=== PATIENT | male | born 1955 | race Caucasian/White ===

== ENCOUNTER 2016-09-07 10:10 | Day surgery (SDC) | payer BC, OTHER ==
[~2016-09-07 10:10] MED LIST: Bupivacaine 0.25%/EPINEPHrine 1:200,000 10 ML SDV ONE; Lactated Ringers 1,000 ML IV SCH; ceFAZolin 2 GM in Premix Bag 1 BAG IV ONE
[2016-09-07] MEDS ORDERED: Octyl 2-Cyanoacrylate 1 Tube ONE (10:14)
--- NOTE | 2016-09-07 11:11 | PCM.PREANE ---
Preanesthetic Assessment - Anesthesia/Transfusion/Family Hx Anesthesia History: Prior Anesthesia Without Reaction Other Type of Anesthesia Reaction Comment: Denies any problem in past, 'my mother gets extreme nausea" Family History of Anesthesia Reaction: No Transfusion History: No Prior Transfusion(s) Intubation History: Unknown - Review of Systems General: No Symptoms Pulmonary: No Symptoms Cardiovascular: No Symptoms Gastrointestinal: No Symptoms Neurological: No Symptoms Other: Reports: None - Physical Assessment Height: 1.8 m Weight: 104.326 kg ASA Class: 2 Mental Status: Alert & Oriented x3 Airway Class: Mallampati = 3 Dentition: Reports: Normal Dentition, Broken Tooth/Teeth (crown fell of upper incisor during prostatectomy in 03/31) Thyro-Mental Finger Breadths: 3 Mouth Opening Finger Breadths: 3 ROM/Head Extension: Full Lungs: Clear to Auscultation, Normal Respiratory Effort Cardiovascular: Regular Rate, Regular Rhythm - Allergies Allergies/Adverse Reactions: Allergies Allergy/AdvReac Type Severity Reaction Status Date / Time Bee stings Allergy Swelling Uncoded 09/07/16 09:49 - Blood Blood Available: No - Anesthesia Plan Pre-Op Medication Ordered: None - Acknowledgements Anesthesia Type Planned: General Anesthesia Pt an Appropriate Candidate for the Planned Anesthesia: Yes Alternatives and Risks of Anesthesia Discussed w Pt/Guardian: Yes Pt/Guardian Understands and Agrees with Anesthesia Plan: Yes PreAnesthesia Questionnaire Other HEENT History: wears glasses Cardiovascular History: Reports: Hypertension Genitourinary History: Reports: Other (See Below) Other Genitourinary History: prostatectomy for prostate cancer Musculoskeletal History: Reports: Fracture Other Musculoskeletal History: DJD, hx: fracturing Lt clavicle, Right arm Neurological History: Reports: Other (See Below) Other Neuro History: hx lyme disease and bells palsey Endocrine/Metabolic History: Reports: Obesity/BMI 30+ Oncologic (Cancer) History: Reports: Prostate Dermatologic History: Reports: None - Past Surgical History Head Surgeries/Procedures: Reports: None GI Surgical History: Reports: Cholecystectomy Male Surgical History: Reports: Prostatectomy Musculoskeletal Surgical History: Reports: Shoulder Surgery Other Musculoskeletal Surgeries/Procedures:: Left Partial Shoulder replacement, 2 Left knee scopes, 1 Right knee arthroscopy Dermatological Surgical History: Reports: Other (See Below) - SUBSTANCE USE Smoking Status *Q: Current Every Day Smoker Tobacco Use Within Last Twelve Months: Cigarettes Other Tobacco Use Within Last Twelve Months: 40 yr history had been using 3 pack /day, down to 1 pack per day Recreational Drug Use History: No - HOME MEDS Home Medications: Home Meds Lisinopril 40 tab PO DAILY 12/17/14 [History] Docusate Sodium 100 mg PO ASDIRECTED PRN 09/04/16 [History] Hydrochlorothiazide 25 mg PO DAILY 09/04/16 [History] diphenhydrAMINE [Benadryl] 4 tab PO ASDIRECTED PRN 09/04/16 [History] - CURRENT (IN HOUSE) MEDS Current Meds: Current Medications Lactated Ringer's (Ringers, Lactated) 1,000 mls @ 125 mls/hr IV ASDIRECTED HAROLDO Last Admin: 09/07/16 10:36 Dose: 125 mls/hr Discontinued Medications Bupivacaine HCl/Epinephrine Bitart (Marcaine 0.25%/Epinephrine 1:200,000) Confirm Administered Dose 40 ml .ROUTE .STK-MED ONE Stop: 09/07/16 10:11 Cefazolin Sodium/Dextrose 2 gm (/ Premix) 50 mls @ 100 mls/hr IV ONETIME ONE Stop: 09/07/16 05:29 Octyl Cyanoacrylate (Dermabond Advance) Confirm Administered Dose 1 applic .ROUTE .STK-MED ONE Stop: 09/07/16 10:15
[2016-09-07] MEDS ORDERED: Midazolam 1 MG/ML 2 ML SDV ONE (11:31)
[2016-09-07] MEDS ORDERED: Propofol 200 MG/20 ML SDV ONE ×2 (11:31→13:02)
[2016-09-07] MEDS ORDERED: fentaNYL 250 MCG/5 ML SDV ONE (11:32)
[2016-09-07] MEDS ORDERED: ceFAZolin 1 GM Vial ONE (11:58)
[2016-09-07] MEDS ORDERED: Dexamethasone 4 MG/ML 5 ML MDV ONE (12:09)
[2016-09-07] MEDS ORDERED: Lidocaine 2% 5 ML SDV ONE (12:09)
[2016-09-07] MEDS ORDERED: Neostigmine Methylsulfate 1 MG/ML 5 ML Syringe ONE (12:09)
[2016-09-07] MEDS ORDERED: Ondansetron 4 MG/2 ML SDV ONE (12:09)
--- NOTE | 2016-09-07 13:22 | PCM.OPNOTE ---
- General Post-Op/Procedure Note Date of Surgery/Procedure: 09/07/16 Operative Procedure(s): incarcerated incisional hernia repair primary, no mesh used; hernia X 2 Findings: supraumb hernia w fat incarcerated, 2 cm, repaired primary; epigastrium hernia, 8 mm defect, repaired primary.[id number] Pre Op Diagnosis: incarc incisional hernia X 2 Post-Op Diagnosis: Same Anesthesia Technique: General ET Tube Primary Surgeon: Morgan Cortes Pathology: sent Complications: None Condition: Good
[2016-09-07] MEDS ORDERED: Acetaminophen/oxyCODONE 325-10 MG Tab PO ONE (13:35)
[2016-09-07] MEDS ORDERED: fentaNYL 100 MCG/2 ML SDV ONE (13:45)
[2016-09-07] MEDS: fentaNYL 100 MCG/2 ML SDV IVPUSH PRN ×4 (13:47→14:10)
[2016-09-07 15:13] VITALS: BP 134/72
--- NOTE | 2016-09-07 19:35 | OR ---
SURGEON: Morgan Cortes MD DATE OF PROCEDURE: 09/07/2016 PREOPERATIVE DIAGNOSIS: Incarcerated incisional hernia x2. POSTOPERATIVE DIAGNOSIS: Incarcerated incisional hernia x2. PROCEDURE PERFORMED: Repair of above, primary without using mesh. COMPLICATIONS: None. FINDINGS: On the supraumbilical area, there is a 2 cm hernia with omentum inside and epigastrium. There is an 8 mm hernia and fat trapped inside for repair primary. DESCRIPTION OF PROCEDURE: The patient was taken to the operating room, placed in a supine position. Upon induction of general endotracheal anesthesia, the patient's abdomen was prepped and draped in a sterile fashion. Time-out had been called, patient identified, procedure identified. Antibiotic was given. Procedure was then started. An Ioban was used prophylactically after assessment of appropriate landmark. Previous surgical incision above the umbilicus was used and we carefully dissected down to expose the hernia sac, and the hernia sac was then removed, sent for pathology. The sac was carefully delineated and the fascial defect is 2 cm and this was brought together without any tension and also expand the incision and laterally on both sides and give a relaxation incision. Hernia defect was repaired by the use of 0 Ethibond simple interrupted and the skin approximated by use of 4-0 Monocryl and Dermabond. Attention now turned to the epigastrium and a transverse incision was made and carefully dissected down to expose the hernia sac, which is horizontal in orientation. Opened the sac, there was fat inside, pushed back into the abdominal cavity, and the fascia defect is 8 mm was repaired with 2 stitches of 0 Ethibond followed with Monocryl followed with approximation of the skin and Dermabond. The patient was then awakened, extubated, and transferred to recovery in hemodynamically stable condition. The patient tolerated the procedure well and there were no intraoperative complications. Dr. Cortes was present throughout the whole procedure. As always, thank you for the kind referral. LOVE / MCKENNA /[id number]
== END 2016-09-07 15:30 | disposition home or self-care (01) ==
LOC: MW.SDS 10:10
PROVIDERS: ATTEND Surgery
PROC: 0WQF0ZZ Repair Abdominal Wall, Open Approach (ICD-10-PCS; principal; 2016-09-07)
PROC: 0WQF0ZZ Repair Abdominal Wall, Open Approach (ICD-10-PCS; 2016-09-07)
DX: K42.0 Umbilical hernia with obstruction, without gangrene (principal); K43.9 Ventral hernia without obstruction or gangrene; I10 Essential (primary) hypertension; M19.90 Unspecified osteoarthritis, unspecified site; F17.210 Nicotine dependence, cigarettes, uncomplicated; E66.9 Obesity, unspecified; Z68.32 Body mass index [BMI] 32.0-32.9, adult; Z91.030 Bee allergy status; Z90.49 Acquired absence of other specified parts of digestive tract; Z90.79 Acquired absence of other genital organ(s); Z96.612 Presence of left artificial shoulder joint; Z98.890 Other specified postprocedural states; Z79.899 Other long term (current) drug therapy; Z85.46 Personal history of malignant neoplasm of prostate; Z86.19 Personal history of other infectious and parasitic diseases
CPT/HCPCS: 49587; A9270; J0690; J1100; J2250; J2405; J3010; J7120; 00832; 88302; J2704

== ENCOUNTER 2017-02-08 07:36 | Day surgery (SDC) | payer OTHER ==
[~2017-02-08 07:36] MED LIST changes: -Bupivacaine 0.25%/EPINEPHrine 1:200,000 10 ML SDV ONE; +Sodium Chloride 0.9% 10 ML Syringe FLUSH PRN; +Sodium Chloride 0.9% 2.5 ML Syringe FLUSH PRN
[2017-02-08] MEDS ORDERED: Bupivacaine 0.5% 30 ML SDV ONE (07:43)
[2017-02-08] MEDS ORDERED: Lidocaine 1% 20 ML MDV ONE (07:46)
[2017-02-08] MEDS ORDERED: Albuterol/Ipratropium 3.0-0.5 MG/3 ML Neb Soln NEB ONE (08:03)
[2017-02-08] MEDS ORDERED: Propofol 200 MG/20 ML SDV ONE (08:04)
[2017-02-08] MEDS ORDERED: Lidocaine 2% 5 ML SDV ONE (08:04)
[2017-02-08] MEDS ORDERED: Midazolam 1 MG/ML 2 ML SDV ONE (08:04)
[2017-02-08] MEDS ORDERED: fentaNYL 100 MCG/2 ML SDV ONE (08:04)
--- NOTE | 2017-02-08 08:26 | PCM.PREANE ---
Preanesthetic Assessment - Procedure Proposed Procedure: Upper back mass excision (lipoma) - Anesthesia/Transfusion/Family Hx Anesthesia History: Prior Anesthesia Without Reaction Other Type of Anesthesia Reaction Comment: Denies any problem in past, 'my mother gets extreme nausea" Family History of Anesthesia Reaction: No Transfusion History: Prior Transfusion Without Reaction Intubation History: Unknown - Review of Systems General: Other (s/p radiation post prostatectomy) Pulmonary: Wheezing, Other (smoker) Cardiovascular: Other (HTN) Gastrointestinal: Other (s/p abdominal ventral hernia repair) Neurological: Other (arthritis; rough physical activity with work x lifetime) - Physical Assessment NPO Status Date: 02/07/17 NPO Status Time: 22:00 O2 Sat by Pulse Oximetry: 95 Respiratory Rate: 18 Vital Signs: Last Vital Signs Temp 98.8 F 02/08/17 08:11 Pulse 72 02/08/17 08:11 Resp 18 02/08/17 08:11 BP 138/73 02/08/17 08:11 Pulse Ox 95 02/08/17 08:11 Height: 5 ft 11 in Weight: 224 lb Mental Status: Alert & Oriented x3 Airway Class: Mallampati = 2 Dentition: Reports: Missing Tooth/Teeth (crown lost at last surgery on right lower (care not done yet)) Thyro-Mental Finger Breadths: 3 Mouth Opening Finger Breadths: 3 (long stubble facial hair) ROM/Head Extension: Full Lungs: Normal Respiratory Effort, Wheezing (bilateral - duoneb ordered) Cardiovascular: Regular Rate, Regular Rhythm, No Murmurs - Allergies Allergies/Adverse Reactions: Allergies Allergy/AdvReac Type Severity Reaction Status Date / Time Bee stings Allergy Anaphylactic Uncoded 02/02/17 10:24 Shock - Blood Blood Available: No Product(s) Available: None - Acknowledgements Anesthesia Type Planned: MAC (local by surgeon; left lateral decubitus position) Pt an Appropriate Candidate for the Planned Anesthesia: Yes Alternatives and Risks of Anesthesia Discussed w Pt/Guardian: Yes Pt/Guardian Understands and Agrees with Anesthesia Plan: Yes PreAnesthesia Questionnaire HEENT History: Reports: Hard of Hearing Other HEENT History: wears glasses, hard of hearing at certain tones Cardiovascular History: Reports: Hypertension Other Respiratory History: 40 yr history of smoking, reports symptoms of Shortness of breath, reducing smoking had hx: 3 packs/day, down to 1/2 pack wtih CHANTIX Genitourinary History: Reports: Renal Calculus Other Genitourinary History: currently has kidney stone Musculoskeletal History: Reports: Back Pain, Chronic, Fracture Other Musculoskeletal History: states L3-4-5 defect, hx of fx ribs, ankle, wrist Neurological History: Reports: Other (See Below) Other Neuro History: hx lyme disease and bells palsey Endocrine/Metabolic History: Reports: Obesity/BMI 30+ Hematologic History: Reports: Blood Transfusion(s) Oncologic (Cancer) History: Reports: Prostate Dermatologic History: Reports: None - Past Surgical History Head Surgeries/Procedures: Reports: None Other Cardiovascular Surgeries/Procedures: Reports annual Stress test in [place] each December going home soon and will have another, denies any significant findings last year GI Surgical History: Reports: Appendectomy, Cholecystectomy, Hernia, Abdominal Other GI Surgeries/Procedures: ventral hernia repair Male Surgical History: Reports: Lithotripsy (ESWL), Prostatectomy Musculoskeletal Surgical History: Reports: Arthroscopic Knee, ORIF Other Musculoskeletal Surgeries/Procedures:: ORIF left clavicle (has pin), right knee scope with "staple" Other Oncologic Surgeries/Procedures: Radical Prostatectomy Dermatological Surgical History: Reports: Other (See Below) - SUBSTANCE USE Smoking Status *Q: Current Every Day Smoker Tobacco Use Within Last Twelve Months: Cigarettes Other Tobacco Use Within Last Twelve Months: 40 yr history had been using 3 pack /day, down to 1 pack per day Recreational Drug Use History: No - HOME MEDS Home Medications: Home Meds Lisinopril 40 tab PO DAILY 12/17/14 [History] Hydrochlorothiazide 25 mg PO DAILY 09/04/16 [History] oxyCODONE HCl/Acetaminophen [oxyCODONE-Acetaminophen 5-325] 1 tab PO ASDIRECTED PRN 02/01/17 [History] - CURRENT (IN HOUSE) MEDS Current Meds: Current Medications Lactated Ringer's (Ringers, Lactated) 1,000 mls @ 125 mls/hr IV ASDIRECTED HAROLDO Last Admin: 02/08/17 08:10 Dose: 125 mls/hr Sodium Chloride (Saline Flush) 10 ml FLUSH ASDIRECTED PRN PRN Reason: Keep Vein Open Sodium Chloride (Saline Flush) 2.5 ml FLUSH ASDIRECTED PRN PRN Reason: Keep Vein Open Discontinued Medications Albuterol/Ipratropium (Duoneb 3.0-0.5 Mg/3 Ml) 3 ml NEB ONETIME ONE Stop: 02/08/17 08:04 Bupivacaine HCl (Marcaine 0.5%) Confirm Administered Dose 30 ml .ROUTE .STK-MED ONE Stop: 02/08/17 07:44 Fentanyl (Sublimaze) Confirm Administered Dose 100 mcg .ROUTE .STK-MED ONE Stop: 02/08/17 08:05 Cefazolin Sodium/Dextrose 2 gm (/ Premix) 50 mls @ 100 mls/hr IV ONETIME ONE Stop: 02/07/17 13:58 Lidocaine (Xylocaine-Mpf 2%) Confirm Administered Dose 5 ml .ROUTE .STK-MED ONE Stop: 02/08/17 08:05 Lidocaine HCl (Xylocaine 1%) Confirm Administered Dose 20 ml .ROUTE .STK-MED ONE Stop: 02/08/17 07:47 Midazolam HCl (Versed 1 Mg/Ml) Confirm Administered Dose 2 mg .ROUTE .STK-MED ONE Stop: 02/08/17 08:05 Propofol (Diprivan 20 Ml) Confirm Administered Dose 400 mg .ROUTE .STK-MED ONE Stop: 02/08/17 08:05
[2017-02-08] MEDS ORDERED: Ondansetron 4 MG/2 ML SDV ONE (09:24)
[2017-02-08] MEDS ORDERED: Ketorolac 30 MG/ML SDV ONE (09:24)
[2017-02-08] MEDS ORDERED: fentaNYL 100 MCG/2 ML SDV IVPUSH PRN (09:28)
--- NOTE | 2017-02-08 09:41 | PCM.OPNOTE ---
- General Post-Op/Procedure Note Date of Surgery/Procedure: 02/08/17 Operative Procedure(s): Excision upper back sebaceous cyst Findings: Upper back sebaceous cyst Pre Op Diagnosis: sebaceous cyst Post-Op Diagnosis: same Anesthesia Technique: MAC Primary Surgeon: Adrianna Butler Condition: Good
--- NOTE | 2017-02-08 10:12 | PCM.POSTAN ---
POST ANESTHESIA ASSESSMENT - MENTAL STATUS Mental Status: Alert, Oriented - RESPIRATORY Respiratory Status: Respiratory Rate WNL, Airway Patent, O2 Saturation Stable - CARDIOVASCULAR CV Status: Pulse Rate WNL, Blood Pressure Stable - GASTROINTESTINAL GI Status: No Symptoms - POST OP HYDRATION Hydration Status: Adequate & Stable
--- NOTE | 2017-02-08 10:13 | PCM48HPAN ---
Post Anesthesia Note - EVALUATION WITHIN 48HRS OF ANESTHETIC Vital Signs in Normal Range: Yes Patient Participated in Evaluation: Yes Respiratory Function Stable: Yes Airway Patent: Yes Cardiovascular Function Stable: Yes Hydration Status Stable: Yes Pain Control Satisfactory: Yes Nausea and Vomiting Control Satisfactory: Yes Mental Status Recovered: Yes
--- NOTE | 2017-02-08 10:23 | OR ---
SURGEON: ISMAEL ARMENDARIZ MD DATE OF PROCEDURE: 02/08/2017 PREOPERATIVE DIAGNOSIS: Sebaceous cyst of upper back. POSTOPERATIVE DIAGNOSIS: Sebaceous cyst of upper back. PROCEDURE PERFORMED: Excision of upper back mass. ANESTHESIA: MAC. FLUIDS: See anesthesia record. ESTIMATED BLOOD LOSS: 5 mL. FINDINGS: A 3 cm sebaceous cyst of the upper back. COMPLICATIONS: None. INDICATIONS: The patient is a 62-year-old male, who has had an upper back mass for many years. It is slowly growing in size and the patient would like to have it removed. On physical exam, this appears to be a sebaceous cyst. The patient and I discussed the procedure as well as expected perioperative course for removing the cyst. We discussed the risks, including bleeding, infection, or damage to surrounding structures. The patient verbalized understanding and wishes to proceed. PROCEDURE IN DETAIL: The patient was brought into the operative room and placed on the OR table in a left lateral decubitus position. A time-out was completed verifying the patient's name, age, date of , allergies, and procedure to be performed. Monitored anesthesia care was induced. All bony prominences were padded appropriately. The upper back was prepped and draped in usual standard fashion. The area overlying the mass was anesthetized with 1% lidocaine plain. A 5 cm incision was made horizontally over the top of the mass. Cautery was used to dissect down to the level of the subcutaneous fat. Metzenbaum scissors were used to dissect around the cyst wall. The cyst was consistent with a sebaceous cyst. I was able to undermine around the cyst and excised it from its subcutaneous attachments. It was then passed off the field, labeled as upper back sebaceous cyst and sent to pathology. Hemostasis was achieved with cautery. The space left by the cyst was closed with interrupted 3-0 Vicryl in the subcutaneous fat and the skin was closed with a running 4-0 Monocryl suture. Steri-Strips and sterile dressings were applied. The patient was taken to the PACU in stable condition. KENDALL ANDRES /[id number]
[2017-02-08 11:18] VITALS: BP 124/60
== END 2017-02-08 10:30 | disposition home or self-care (01) ==
LOC: MW.SDS 07:36
PROVIDERS: ATTEND Surgery
DX: L72.3 Sebaceous cyst (principal); L72.0 Epidermal cyst; M19.90 Unspecified osteoarthritis, unspecified site; E66.9 Obesity, unspecified; F17.210 Nicotine dependence, cigarettes, uncomplicated; I10 Essential (primary) hypertension; Z91.030 Bee allergy status; Z79.899 Other long term (current) drug therapy; Z90.49 Acquired absence of other specified parts of digestive tract; Z85.46 Personal history of malignant neoplasm of prostate; Z98.890 Other specified postprocedural states; Z68.31 Body mass index [BMI] 31.0-31.9, adult; Z87.442 Personal history of urinary calculi
CPT/HCPCS: 11406; 12031; 94640; J1885; J2250; J2405; J3010; J7120; 00300; 88304; J2704